=== PATIENT | female | born 2000 | race Caucasian/White ===

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

== ENCOUNTER 2021-03-16 02:03 | Emergency (ER) | payer OTHER ==
[2021-03-16 02:12] VITALS: BP 136/90; PULSE 115; TEMP 97.6; BMI 30.9
[2021-03-16] MEDS ORDERED: FAMOTIDINE 20 MG/50 ML IVPB 20 MG/50 ML MG IVPB ONE ×2 (03:02→03:08)
[2021-03-16] MEDS ORDERED: SODIUM CHLORIDE 0.9% 500 ML INFUS.BAG IV ONE (03:02)
[2021-03-16] MEDS ORDERED: MAG HYDROX/AL HYDROX/SIMETH 30 ML UNIT-DOSE CUP PO ONE (03:02)
[2021-03-16] MEDS ORDERED: MAG HYDROX/AL HYDROX/SIMETH 30 ML UNIT-DOSE CUP ONE (03:05)
[2021-03-16 03:17] LABS: BASO % 0.9 % (0-2.0); EOS % 1.5 % (0-4.5); HEMATOCRIT 37.7 % (32.4-45.2); HEMOGLOBIN 12.5 GM/dL (10.7-15.3); LYMPH % 32.9 % (8-40); MCH 24.7 pg (25.7-33.7); MCHC 33.2 g/dl (32.0-36.0); MEAN CELL VOLUME 74.5 fl (80-96); MEAN PLT VOLUME 6.8 fl (7.5-11.1); MONO % 10.7 % (3.8-10.2); PLATELET COUNT 337 10^3/uL (134-434); RBC 5.06 M/mm3 (3.60-5.2); RDW 13.3 % (11.6-15.6); WHITE BLOOD COUNT 10.1 K/mm3 (4.0-10.0)
[2021-03-16 03:25] LABS: INR 0.93 (0.83-1.09); PROTHROMBIN TIME (PATIENT) 11.3 SEC (9.7-13.0)
[2021-03-16 03:37] LABS: CHLORIDE 107 mmol/L (98-107); SODIUM 139 mmol/L (136-145)
[2021-03-16 03:39] LABS: CALCIUM 8.7 mg/dL (8.5-10.1)
[2021-03-16 03:40] LABS: ALBUMIN 3.6 g/dl (3.4-5.0); ANION GAP 8 MMOL/L (8-16); BLOOD UREA NITROGEN 14.1 mg/dL (7-18); CO2 23 mmol/L (21-32); GLUCOSE,RANDOM 107 mg/dL (74-106); LIPASE 281 U/L (73-393)
[2021-03-16 03:43] LABS: CREATININE 0.7 mg/dL (0.55-1.3); SGOT/AST 12 U/L (15-37); SGPT/ALT 13 U/L (13-61)
[2021-03-16 03:44] LABS: BILIRUBIN,TOTAL 0.2 mg/dL (0.2-1); TOT PROT 7.8 g/dl (6.4-8.2)
[2021-03-16 03:45] LABS: ALK PHOS 62 U/L (45-117)
== END 2021-03-16 05:00 | disposition home or self-care (01) ==
LOC: JER 02:03
PROC: 3E033GC Introduction of Other Therapeutic Substance into Peripheral Vein, Percutaneous Approach (ICD-10-PCS; principal; 2021-03-16)
DX: R10.13 Epigastric pain (principal); K21.9 Gastro-esophageal reflux disease without esophagitis
CPT/HCPCS: 36415; 71045-TC-FY; 80053; 82550; 83690; 84443; 84484; 84703; 85025; 85610; 93005; 93010; 99285-25

== ENCOUNTER 2021-03-18 11:35 | Emergency (ER) | payer OTHER ==
[2021-03-18] MEDS ORDERED: ACETAMINOPHEN 325 MG TABLET (FP) PO ONE (11:42)
[2021-03-18 11:44] VITALS: TEMP 98.1; BMI 29.9
[2021-03-18] MEDS ORDERED: ACETAMINOPHEN 325 MG TABLET (FP) ONE (11:48)
[2021-03-18 12:17] VITALS: BP 147/86; PULSE 86
== END 2021-03-18 13:40 | disposition home or self-care (01) ==
LOC: FER 11:35
DX: M79.601 Pain in right arm (principal); M79.604 Pain in right leg
CPT/HCPCS: 99283-25